=== PATIENT | male | born 1980 | race Caucasian/White ===

== ENCOUNTER → 2022-04-24 | Outpatient (CLI) | payer BC, OTHER ==
[~2022-04-24] MED LIST: ALDACTONE25 MG PO; GLUCOPHAGE1000 MG PO; KEFLEX CAP 500500 MG PO; KENALOG CREAM 015 GM TOP; LASIX20 MG PO; LOTENSIN40 MG PO; NORVASC10 MG PO; PROVENTIL HFA6.7 GM INH; SYNTHROID125 MCG PO; TOPROL XL 100100 MG PO; TYLENOL 325MG325 MG PO
== END ==
LOC: KOH-I 15:10
DX: M79.669 Pain in unspecified lower leg (principal); M54.50 Low back pain, unspecified; M54.6 Pain in thoracic spine; M47.814 Spondylosis without myelopathy or radiculopathy, thoracic region
CPT/HCPCS: 72070; 72100; 93970